=== PATIENT | male | born 1925 | race Caucasian/White ===

== ENCOUNTER 2016-10-09 08:44 | Emergency (ER) | payer MEDICARE, BC ==
[2007-07-22 00:17] VITALS: BP 142/82
[~2016-10-09] VITALS: Ht 170.2 cm; Wt 79.5 kg
[~2016-10-09 08:44] MED LIST: ALBUTEROL SULF0.5 M1 IH; AMIODARONE HCL200 MG PO; AMIODARONE200 MG PO; APRESOLINE50 MG PO; ASPIRIN 81M81 MG/TA2 PO; ASPIRIN E.C. 8181 MG PO; ATROVENT I0.2 MG/1 M IH; CATAPRES-T0.2 MG/24 TD; CEFTIN500 MG PO; CLEOCIN HC150 MG/CAP PO; CLONIDINE0.1 MG PO; COLACE 100100 MG/CAP PO; COLACE100 MG PO; COREG 25MG25 MG/TAB PO; COREG12.5 MG; COREG12.5 MG PO; COREG6.25 MG PO; COUMADIN 1MG1 MG/TAB PO; COUMADIN 2MG2 MG/TAB PO; DARBEPOETIN ALFA IJ; DIFLUCAN 100MG100 MG PO; DOXAZOCIN; FOLIC ACID1 MG PO; HYDRALAZINE HCL25 MG PO; HYDRALAZINE50 MG PO; HYDROXYZINE10 M1 PO; LANTUS100 U/ML SC; LANTUS100 U/ML SQ; LASIX 40MG TABL40 MG PO; LASIX40 MG PO; LEVAQUIN 5500 MG/TA1 PO; LIPITOR20 MG PO; LORTAB 5/500 501 TAB PO; LOVENOX 6060 MG/0.6 SQ; MASON NATURAL2000 IU PO; MIRALAX PA17 GM/Dose PO; NEPHROCAP PO; NITROSTAT0.4 MG/TAB SL; NORVASC 5MG5 MG/TAB PO; NORVASC10 MG PO; PARICALCITOL IV; PERCOCET 325 MG1 TA2 PO; PHOS LO; PLAVIX 75MG TAB75 MG PO; PROAIR HFA0.09 MG/AC IH; RENAGEL800 MG PO; RENVELA800 MG PO; REQUIP2 MG PO; RT ADVAIR 228 DISKUS IH; SENSIPAR30 MG PO; SINGULAIR 110 MG/TAB PO; STIOLTO RESPIMAT4 GM IH; TESSALON P100 MG/CAP PO; TRAMADOL50 MG PO; ZAROXOLYN5 MG PO; ZOCOR 20MG20 MG PO; ZOCOR40 MG PO; ZYLOPRIM 100MG100 MG PO; ZYRTEC 10MG10 MG PO; ZYRTEC ALLERGY10 MG PO; [UNRECOGNIZED DRUG - CODE]; ipratropium bromide
[2016-10-09 08:47] VITALS: TEMP 98.3
[2016-10-09 09:57] LABS: BASO % 0.6 % (0.0-2.0); EOS # 0.2 (0.0-0.7); GRAN # 2.3 (1.4-6.5); GRAN % 62.5 % (42.2-75.2); LYMPH # 0.8 (1.2-3.4); LYMPH % 21.9 % (20.0-51.0); MEAN CELL VOLUME 117 fl (80.0-100.0); MEAN CORPUSCULAR HGB CONC 33 g/dl (33.0-37.0); MEAN PLATELET VOLUME 9.8 fl (7.4-10.4); MONO # 0.4 (0.1-0.6); MONO % 9.7 % (1.7-9.3); PLATELET COUNT 93 K/mm3 (130-400); RED BLOOD COUNT 2.38 M/mm3 (4.20-5.60); WHITE BLOOD COUNT 3.6 K/mm3 (4.8-10.8)
[2016-10-09 09:59] LABS: HEMATOCRIT 27.9 % (42.0-52.0); HEMOGLOBIN 9.3 g/dl (13.5-18.0); MEAN CORPUSCULAR HEMOGLOBIN 39 pg (27.0-31.0)
[2016-10-09] MEDS ORDERED: NORVASC 5MG5 MG/TAB PO (10:02)
[2016-10-09] MEDS ORDERED: COUMADIN 1MG1 MG/TAB PO ×2 (10:05→10:06)
[2016-10-09 10:22] LABS: ADJUSTED CALCIUM 8.9 mg/dL (8.4-10.2); ALBUMIN 3.2 gm/dL (3.5-5.0); BILIRUBIN,TOTAL 0.8 mg/dL (0.0-1.0); CALCIUM 8.3 mg/dL (8.4-10.2); POTASSIUM 4.9 mmol/L (3.4-5.0); TOTAL PROTEIN 6.5 gm/dL (6.4-8.2)
[2016-10-09 10:32] LABS: CREATININE, serum 8.43 mg/dL (0.66-1.25)
[2016-10-09 11:45] VITALS: BP 121/57; PULSE 69
== END 2016-10-09 11:45 | disposition home or self-care (01) ==
LOC: COL.ER 08:44
PROVIDERS: Family Medicine
DX: T44.3X1A Poisoning by other parasympatholytics [anticholinergics and antimuscarinics] and spasmolytics, accidental (unintentional), initial encounter (principal); T46.1X1A Poisoning by calcium-channel blockers, accidental (unintentional), initial encounter; T42.4X1A Poisoning by benzodiazepines, accidental (unintentional), initial encounter; Y92.009 Unspecified place in unspecified non-institutional (private) residence as the place of occurrence of the external cause; I12.0 Hypertensive chronic kidney disease with stage 5 chronic kidney disease or end stage renal disease; N18.6 End stage renal disease; Z99.2 Dependence on renal dialysis; Z87.891 Personal history of nicotine dependence

== ENCOUNTER 2016-11-10 11:20 | Outpatient (RCR) | payer MEDICARE, BC ==
[2007-07-22 00:17] VITALS: BP 142/82
[2016-11-09 10:35] LABS: HEMOGLOBIN 6.7 g/dl (13.5-18.0)
[~2016-11-10] VITALS: Ht 172.7 cm; Wt 79.5 kg
[2016-11-10 12:35] VITALS: BP 139/65; PULSE 70; TEMP 97.9
[2016-11-10] MEDS ORDERED: ZYRTEC 10MG10 MG PO (12:47)
[2016-11-10 12:55] VITALS: BP 141/60; PULSE 70; TEMP 96.8
[2016-11-10 13:10] VITALS: BP 165/68; PULSE 77; TEMP 97.1
[2016-11-10 13:40] VITALS: BP 146/69; PULSE 71; TEMP 97.6
[2016-11-10 14:37] VITALS: BP 154/72; PULSE 70; TEMP 96.8
== END 2016-11-10 15:00 | disposition home or self-care (01) ==
LOC: EUO 11:20
PROVIDERS: Internal Medicine Nephrology
DX: R71.0 Precipitous drop in hematocrit (principal)
CPT/HCPCS: J7050; P9016

== ENCOUNTER 2016-11-15 07:02 | Inpatient (IN) | payer MEDICARE, BC ==
[2016-11-15] VITALS (380 sets, daily range): BP systolic 108–150; BP diastolic 52–91; PULSE 72–91; TEMP 97.8–98.7; O2SAT 52–100
[~2016-11-15] VITALS: Ht 170.2 cm; Wt 79.1 kg
[2016-11-15 07:47] LABS: BASO % 0.1 % (0.0-2.0); EOS # 0.4 (0.0-0.7); EOS % 5.5 % (0-4.0); GRAN # 4.2 (1.4-6.5); GRAN % 63.2 % (42.2-75.2); LYMPH # 1.3 (1.2-3.4); LYMPH % 19.6 % (20.0-51.0); MEAN CELL VOLUME 120 fl (80.0-100.0); MEAN CORPUSCULAR HGB CONC 32 g/dl (33.0-37.0); MEAN PLATELET VOLUME 9.9 fl (7.4-10.4); MONO # 0.7 (0.1-0.6); MONO % 10.9 % (1.7-9.3); PLATELET COUNT 135 K/mm3 (130-400); RED BLOOD COUNT 1.64 M/mm3 (4.20-5.60); REDCELL DISTRIBUTION WIDTH-CV 21.6 % (11.5-14.5); WHITE BLOOD COUNT 6.7 K/mm3 (4.8-10.8)
[2016-11-15] MEDS ORDERED: COUMADIN 1MG1 MG/TAB PO (07:47)
[2016-11-15 07:54] LABS: HEMATOCRIT 19.7 % (42.0-52.0); MEAN CORPUSCULAR HEMOGLOBIN 38 pg (27.0-31.0)
[2016-11-15 07:55] LABS: HEMOGLOBIN 6.2 g/dl (13.5-18.0)
[2016-11-15 08:12] LABS: PROTHROMBIN TIME 44.9 SECONDS (9.7-12.8)
[2016-11-15 08:15] LABS: PARTIAL THROMBOPLASTIN TIME 59.9 SECONDS (26.0-37.0)
[2016-11-15 08:20] LABS: INR 3.9 (0.8-3.0)
[2016-11-15 09:02] LABS: ADJUSTED CALCIUM 9.7 mg/dL (8.4-10.2); ALBUMIN 2.9 gm/dL (3.5-5.0); BILIRUBIN,TOTAL 0.8 mg/dL (0.0-1.0); CALCIUM 8.8 mg/dL (8.4-10.2); POTASSIUM 4.6 mmol/L (3.4-5.0)
[2016-11-15 09:03] LABS: CREATININE, serum 5.6 mg/dL (0.66-1.25); TROPONIN-I 0.827 ng/mL (0.000-0.034)
[2016-11-15] MEDS ORDERED: COREG 25MG25 MG/TAB PO (09:47)
[2016-11-15 17:48] LABS: BASO % 0.6 % (0.0-2.0); EOS # 0.2 (0.0-0.7); EOS % 3.3 % (0-4.0); LYMPH # 1.2 (1.2-3.4); LYMPH % 17.2 % (20.0-51.0); MEAN CORPUSCULAR HGB CONC 33 g/dl (33.0-37.0); MEAN PLATELET VOLUME 9.5 fl (7.4-10.4); MONO # 0.7 (0.1-0.6); MONO % 9.3 % (1.7-9.3); PLATELET COUNT 93 K/mm3 (130-400); RED BLOOD COUNT 3.23 M/mm3 (4.20-5.60); REDCELL DISTRIBUTION WIDTH-CV 23.9 % (11.5-14.5); WHITE BLOOD COUNT 7.2 K/mm3 (4.8-10.8)
[2016-11-15 17:59] LABS: ALBUMIN 3.5 gm/dL (3.5-5.0); CALCIUM 8.9 mg/dL (8.4-10.2); CREATININE, serum 1.8 mg/dL (0.66-1.25); POTASSIUM 3.2 mmol/L (3.4-5.0)
[2016-11-15 18:02] LABS: HEMATOCRIT 32.7 % (42.0-52.0); HEMOGLOBIN 10.8 g/dl (13.5-18.0); MEAN CELL VOLUME 101 fl (80.0-100.0); MEAN CORPUSCULAR HEMOGLOBIN 33 pg (27.0-31.0)
[2016-11-15 18:21] LABS: TROPONIN-I 1.72 ng/mL (0.000-0.034)
[2016-11-15 18:26] LABS: INR 2.9 (0.8-3.0); PROTHROMBIN TIME 32.7 SECONDS (9.7-12.8)
[2016-11-16] VITALS (518 sets, daily range): BP systolic 82–133; BP diastolic 42–87; PULSE 70–86; TEMP 97.4–98.7; O2SAT 71–100
[2016-11-16 06:34] LABS: BASO % 0.3 % (0.0-2.0); EOS # 0.2 (0.0-0.7); EOS % 2.6 % (0-4.0); LYMPH # 1.1 (1.2-3.4); LYMPH % 15.4 % (20.0-51.0); MEAN CELL VOLUME 102 fl (80.0-100.0); MEAN CORPUSCULAR HGB CONC 33 g/dl (33.0-37.0); MEAN PLATELET VOLUME 9.5 fl (7.4-10.4); MONO # 0.8 (0.1-0.6); MONO % 10.7 % (1.7-9.3); PLATELET COUNT 86 K/mm3 (130-400); RED BLOOD COUNT 2.97 M/mm3 (4.20-5.60); WHITE BLOOD COUNT 7.2 K/mm3 (4.8-10.8)
[2016-11-16 06:35] LABS: HEMATOCRIT 30.4 % (42.0-52.0); MEAN CORPUSCULAR HEMOGLOBIN 34 pg (27.0-31.0)
[2016-11-16 06:44] LABS: CALCIUM 8.7 mg/dL (8.4-10.2); PHOSPHOROUS 3.7 mg/dL (2.5-4.5); POTASSIUM 4.1 mmol/L (3.4-5.0)
[2016-11-16 07:00] LABS: INR 1.6 (0.8-3.0); PROTHROMBIN TIME 17.8 SECONDS (9.7-12.8)
[2016-11-16 07:01] LABS: CREATININE, serum 4.26 mg/dL (0.66-1.25); TROPONIN-I 1.37 ng/mL (0.000-0.034)
[2016-11-17] VITALS (8 sets, daily range): BP systolic 98–124; BP diastolic 31–64; PULSE 71–82; TEMP 97.5–98.5
[2016-11-17 07:58] LABS: ALBUMIN 2.8 gm/dL (3.5-5.0); CALCIUM 8.5 mg/dL (8.4-10.2); PHOSPHOROUS 3.5 mg/dL (2.5-4.5); POTASSIUM 4.1 mmol/L (3.4-5.0)
[2016-11-17 08:58] LABS: CREATININE, serum 5.79 mg/dL (0.66-1.25)
[2016-11-17 13:18] LABS: BASO % 0.5 % (0.0-2.0); EOS # 0.2 (0.0-0.7); EOS % 2.5 % (0-4.0); GRAN # 4.3 (1.4-6.5); GRAN % 71.2 % (42.2-75.2); LYMPH # 0.9 (1.2-3.4); LYMPH % 14.7 % (20.0-51.0); MEAN CELL VOLUME 102 fl (80.0-100.0); MEAN CORPUSCULAR HGB CONC 34 g/dl (33.0-37.0); MEAN PLATELET VOLUME 9.5 fl (7.4-10.4); MONO # 0.6 (0.1-0.6); MONO % 10.3 % (1.7-9.3); PLATELET COUNT 76 K/mm3 (130-400); RED BLOOD COUNT 2.67 M/mm3 (4.20-5.60); REDCELL DISTRIBUTION WIDTH-CV 25.1 % (11.5-14.5)
[2016-11-17 13:20] LABS: HEMATOCRIT 27.2 % (42.0-52.0); HEMOGLOBIN 9.2 g/dl (13.5-18.0); MEAN CORPUSCULAR HEMOGLOBIN 34 pg (27.0-31.0)
[2016-11-17 13:22] LABS: INR 1.2 (0.8-3.0)
[2016-11-18 00:23] VITALS: BP 82/41; PULSE 69; TEMP 97.9
[2016-11-18 02:09] VITALS: BP 97/47
[2016-11-18 08:08] VITALS: BP 104/50; PULSE 80; TEMP 97.6
[2016-11-18 09:15] LABS: BASO % 0.2 % (0.0-2.0); EOS # 0.1 (0.0-0.7); GRAN # 3.7 (1.4-6.5); GRAN % 67.7 % (42.2-75.2); INR 1.1 (0.8-3.0); LYMPH # 0.9 (1.2-3.4); LYMPH % 16.1 % (20.0-51.0); MEAN CELL VOLUME 105 fl (80.0-100.0); MEAN CORPUSCULAR HGB CONC 33 g/dl (33.0-37.0); MEAN PLATELET VOLUME 10.2 fl (7.4-10.4); MONO # 0.7 (0.1-0.6); MONO % 13.3 % (1.7-9.3); PROTHROMBIN TIME 12.3 SECONDS (9.7-12.8); RED BLOOD COUNT 2.44 M/mm3 (4.20-5.60); REDCELL DISTRIBUTION WIDTH-CV 25.1 % (11.5-14.5); WHITE BLOOD COUNT 5.5 K/mm3 (4.8-10.8)
[2016-11-18 09:31] LABS: HEMATOCRIT 25.7 % (42.0-52.0); HEMOGLOBIN 8.4 g/dl (13.5-18.0); MEAN CORPUSCULAR HEMOGLOBIN 34 pg (27.0-31.0); PLATELET COUNT 72 K/mm3 (130-400)
[2016-11-18 09:44] LABS: ALBUMIN 2.5 gm/dL (3.5-5.0); CALCIUM 8.3 mg/dL (8.4-10.2); PHOSPHOROUS 2.9 mg/dL (2.5-4.5); POTASSIUM 3.6 mmol/L (3.4-5.0)
[2016-11-18 09:46] LABS: CREATININE, serum 4.41 mg/dL (0.66-1.25)
[2016-11-18] MEDS ORDERED: COREG 3.123.125 MG/T PO (12:10)
[2016-11-18 12:14] VITALS: BP 98/44; PULSE 78
== END 2016-11-18 14:34 | disposition home or self-care (01) | DRG 377 ==
LOC: COL.ER 07:02 → MEDICAL 08:45 → IMCU 08:45 → ICU 08:45 → MEDICAL 11-16 11:37
PROVIDERS: Emergency Medicine; Internal Medicine Gastroenterology; Internal Medicine Nephrology
PROC: 5A1D60Z (ICD-10-PCS; 2016-11-15)
PROC: 0DJ08ZZ Inspection of Upper Intestinal Tract, Via Natural or Artificial Opening Endoscopic (ICD-10-PCS; principal; 2016-11-17 14:00)
PROC: 0DJD8ZZ Inspection of Lower Intestinal Tract, Via Natural or Artificial Opening Endoscopic (ICD-10-PCS; 2016-11-17 14:00)
DX: K92.1 Melena (principal); N18.6 End stage renal disease; I21.4 Non-ST elevation (NSTEMI) myocardial infarction; I12.0 Hypertensive chronic kidney disease with stage 5 chronic kidney disease or end stage renal disease; D63.1 Anemia in chronic kidney disease; D50.0 Iron deficiency anemia secondary to blood loss (chronic); E87.70 Fluid overload, unspecified; I48.91 Unspecified atrial fibrillation; Z99.2 Dependence on renal dialysis; Z95.1 Presence of aortocoronary bypass graft; Z95.0 Presence of cardiac pacemaker; Z82.49 Family history of ischemic heart disease and other diseases of the circulatory system; Z79.01 Long term (current) use of anticoagulants; Z88.0 Allergy status to penicillin
CPT/HCPCS: J0882; J1650; J2704; J2916; P9016; P9040

== ENCOUNTER → 2016-11-20 | Outpatient (CLI) | payer MEDICARE, BC ==
[~2016-11-20] MED LIST changes: +COREG 3.123.125 MG/T PO; +DIGITEK0.125 MG PO; +MIRALAX119G PO; +MULTAQ400 MG PO; +MULTIPLE VITAMI1 CAP PO
[2016-11-20 11:10] LABS: MEAN CORPUSCULAR HGB CONC 32 g/dl (33.0-37.0); MEAN PLATELET VOLUME 9.9 fl (7.4-10.4); PLATELET COUNT 90 K/mm3 (130-400); RED BLOOD COUNT 2.47 M/mm3 (4.20-5.60); REDCELL DISTRIBUTION WIDTH-CV 25.8 % (11.5-14.5); WHITE BLOOD COUNT 5.5 K/mm3 (4.8-10.8)
[2016-11-20 11:11] LABS: HEMATOCRIT 27.3 % (42.0-52.0); HEMOGLOBIN 8.7 g/dl (13.5-18.0); MEAN CELL VOLUME 111 fl (80.0-100.0); MEAN CORPUSCULAR HEMOGLOBIN 35 pg (27.0-31.0)
== END ==
LOC: COL.LAB 10:27
PROVIDERS: Internal Medicine
DX: K92.2 Gastrointestinal hemorrhage, unspecified (principal)

== ENCOUNTER 2016-12-18 07:57 | Outpatient (CLI) | payer MEDICARE, BC ==
[2007-07-22 00:17] VITALS: BP 142/82
[~2016-12-18] VITALS: Ht 167.6 cm; Wt 75.9 kg
[~2016-12-18 07:57] MED LIST changes: -DIGITEK0.125 MG PO; -MIRALAX119G PO; -MULTAQ400 MG PO; -MULTIPLE VITAMI1 CAP PO
[2016-12-18 08:40] VITALS: BP 108/52; PULSE 72; TEMP 97.9
[2016-12-18 08:54] LABS: INR 1.4 (0.8-3.0); PROTHROMBIN TIME 16.1 SECONDS (9.7-12.8)
[2016-12-18] MEDS ORDERED: MULTIPLE VITAMI1 CAP PO (09:07)
[2016-12-18] MEDS ORDERED: REQUIP2 MG PO (09:10)
[2016-12-18] MEDS ORDERED: MIRALAX119G PO (09:12)
[2016-12-18] MEDS ORDERED: ZYRTEC 10MG10 MG PO (09:13)
[2016-12-18] MEDS ORDERED: COUMADIN 1MG1 MG/TAB PO (09:14)
[2016-12-18] MEDS ORDERED: DIGITEK0.125 MG PO (09:15)
[2016-12-18 10:16] VITALS: BP 107/44; PULSE 60; TEMP 97.5
[2016-12-18 10:30] VITALS: BP 109/47; PULSE 70
[2016-12-18 10:45] VITALS: BP 101/44; PULSE 70
[2016-12-18 11:00] VITALS: BP 105/47; PULSE 76
[2016-12-18 11:10] VITALS: BP 114/58; PULSE 87
[2016-12-18 13:03] LABS: GLUCOSE,PLEURAL FLUID 105 mg/dL
[2016-12-18 13:10] LABS: PLEURAL FLUID RIGHT SIDE; PLEURAL FLUID APPEARANCE HAZY; PLEURAL FLUID COLOR YELLOW
== END 2016-12-18 11:30 | disposition home or self-care (01) ==
LOC: SDCO 07:57
PROVIDERS: Internal Medicine Pulmonary Disease
DX: J90 Pleural effusion, not elsewhere classified (principal); R06.02 Shortness of breath

== ENCOUNTER 2016-12-20 06:59 | Day surgery (SDC) | payer MEDICARE, BC ==
[2007-07-22 00:17] VITALS: BP 142/82
[~2016-12-20] VITALS: Ht 170.3 cm; Wt 75.0 kg
[2016-12-20] VITALS (8 sets, daily range): BP systolic 85–118; BP diastolic 38–55; PULSE 69–81; TEMP 97.1
[~2016-12-20 06:59] MED LIST changes: +DIGITEK0.125 MG PO; +MIRALAX119G PO; +MULTIPLE VITAMI1 CAP PO
[2016-12-20 07:47] LABS: INR 1.3 (0.8-3.0); MEAN CORPUSCULAR HGB CONC 33 g/dl (33.0-37.0); MEAN PLATELET VOLUME 9.4 fl (7.4-10.4); PLATELET COUNT 90 K/mm3 (130-400); PROTHROMBIN TIME 14.1 SECONDS (9.7-12.8); RED BLOOD COUNT 2.81 M/mm3 (4.20-5.60); REDCELL DISTRIBUTION WIDTH-CV 22.7 % (11.5-14.5); WHITE BLOOD COUNT 6.8 K/mm3 (4.8-10.8)
[2016-12-20 08:07] LABS: CALCIUM 9.3 mg/dL (8.4-10.2); HEMATOCRIT 32.5 % (42.0-52.0); HEMOGLOBIN 10.6 g/dl (13.5-18.0); MEAN CORPUSCULAR HEMOGLOBIN 38 pg (27.0-31.0); POTASSIUM 3.7 mmol/L (3.4-5.0)
[2016-12-20 08:22] LABS: CREATININE, serum 5.97 mg/dL (0.66-1.25)
[2016-12-20] MEDS ORDERED: MULTAQ400 MG PO (09:45)
[2016-12-20 12:32] LABS: MEAN CELL VOLUME 116 fl (80.0-100.0)
== END 2016-12-20 12:31 | disposition home or self-care (01) ==
LOC: COL.CAR 06:59
PROVIDERS: Internal Medicine Cardiovascular Disease
DX: I48.0 Paroxysmal atrial fibrillation (principal); I77.819 Aortic ectasia, unspecified site; I70.0 Atherosclerosis of aorta; I34.0 Nonrheumatic mitral (valve) insufficiency; I12.0 Hypertensive chronic kidney disease with stage 5 chronic kidney disease or end stage renal disease; N18.6 End stage renal disease; Z99.2 Dependence on renal dialysis; I25.10 Atherosclerotic heart disease of native coronary artery without angina pectoris; I11.0 Hypertensive heart disease with heart failure; I50.9 Heart failure, unspecified; M10.9 Gout, unspecified; E78.5 Hyperlipidemia, unspecified; Z95.1 Presence of aortocoronary bypass graft; Z86.73 Personal history of transient ischemic attack (TIA), and cerebral infarction without residual deficits; Z79.899 Other long term (current) drug therapy; Z79.01 Long term (current) use of anticoagulants
CPT/HCPCS: G9654; J0330; J2704

== ENCOUNTER 2016-12-26 16:09 | Emergency (ER) | payer MEDICARE, BC ==
[2007-07-22 00:17] VITALS: BP 142/82
[~2016-12-26] VITALS: Ht 170.2 cm; Wt 75.0 kg
[~2016-12-26 16:09] MED LIST changes: +MULTAQ400 MG PO
[2016-12-26 16:34] VITALS: TEMP 98.9
[2016-12-26 17:02] LABS: BASO # 0.1 (0.0-0.2); BASO % 0.4 % (0.0-2.0); EOS # 0.3 (0.0-0.7); EOS % 1.8 % (0-4.0); GRAN # 11.4 (1.4-6.5); GRAN % 82.4 % (42.2-75.2); HEMATOCRIT 37.9 % (42.0-52.0); HEMOGLOBIN 12.5 g/dl (13.5-18.0); LYMPH # 1.1 (1.2-3.4); LYMPH % 8.3 % (20.0-51.0); MEAN CELL VOLUME 114 fl (80.0-100.0); MEAN CORPUSCULAR HEMOGLOBIN 37 pg (27.0-31.0); MEAN CORPUSCULAR HGB CONC 33 g/dl (33.0-37.0); MEAN PLATELET VOLUME 10.3 fl (7.4-10.4); MONO # 0.9 (0.1-0.6); MONO % 6.4 % (1.7-9.3); PLATELET COUNT 141 K/mm3 (130-400); RED BLOOD COUNT 3.34 M/mm3 (4.20-5.60); REDCELL DISTRIBUTION WIDTH-CV 21.6 % (11.5-14.5); WHITE BLOOD COUNT 13.8 K/mm3 (4.8-10.8)
[2016-12-26 18:11] VITALS: BP 139/77; PULSE 106
[2016-12-26 19:03] LABS: ARTERIAL BLD GAS O2 SATURATION 95.5 % (92-100); ARTERIAL BLD GAS TCO2 CT 26.6; ARTERIAL BLOOD GAS BASE EXCESS -0.1 (-2-2); ARTERIAL BLOOD GAS HCO3 25.3 meq/L (22-26); ARTERIAL BLOOD GAS pH 7.38 (7.35-7.45)
[2016-12-26 19:04] LABS: ATS? YES
== END 2016-12-26 18:10 | disposition short-term general hospital (02) ==
LOC: COL.ER 16:09
PROVIDERS: Emergency Medicine
DX: J90 Pleural effusion, not elsewhere classified (principal); R06.00 Dyspnea, unspecified; R07.9 Chest pain, unspecified; I48.91 Unspecified atrial fibrillation; I25.10 Atherosclerotic heart disease of native coronary artery without angina pectoris; Z95.1 Presence of aortocoronary bypass graft; Z79.01 Long term (current) use of anticoagulants; I12.0 Hypertensive chronic kidney disease with stage 5 chronic kidney disease or end stage renal disease; N18.6 End stage renal disease; Z99.2 Dependence on renal dialysis; J44.9 Chronic obstructive pulmonary disease, unspecified; Z95.0 Presence of cardiac pacemaker
CPT/HCPCS: J0692; J1644; Q9967